=== PATIENT | female | born 1995 | race Caucasian/White ===

== ENCOUNTER → 2016-12-31 | Outpatient (CLI) | payer BC ==
[~2016-12-31] MED LIST: FLEXERIL10 MG; LEXAPRO10 MG PO
== END | disposition home or self-care (01) ==
LOC: NUC 12-21 07:00
DX: R10.13 Epigastric pain (principal); R11.0 Nausea; K21.9 Gastro-esophageal reflux disease without esophagitis
CPT/HCPCS: 78264; A9541